=== PATIENT | male | born 1990 | race Caucasian/White ===

== ENCOUNTER 2024-02-01 12:26 | Emergency (ER) | payer BC, OTHER ==
[~2024-02-01] VITALS: Ht 167.6 cm; Wt 73.7 kg
[2024-02-01] MEDS: LIDOCAINE 5% (LIDODERM) PATCH TD ONE (13:21)
[2024-02-01] MEDS: KETOROLAC 60MG 2ML VIAL IM ONE (13:21)
[2024-02-01] MEDS ORDERED: NAPR-837 PO (14:05)
[2024-02-01] MEDS ORDERED: METH-1164 PO (14:05)
[2024-02-01] MEDS ORDERED: LIDO5DIS41 TD (14:05)
[2024-02-01 14:09] VITALS: BP 143/65; TEMP 97.6; O2SAT 99
== END 2024-02-01 14:11 | disposition home or self-care (01) ==
LOC: M ED 12:26
DX: S39.012A Strain of muscle, fascia and tendon of lower back, initial encounter (principal); X50.0XXA Overexertion from strenuous movement or load, initial encounter; Y93.H1 Activity, digging, shoveling and raking; Y92.9 Unspecified place or not applicable; Y99.9 Unspecified external cause status
CPT/HCPCS: 96372; 99283; J1885

== ENCOUNTER 2024-09-15 13:30 | Emergency (ER) | payer BC ==
[~2024-09-15] VITALS: Ht 167.6 cm; Wt 74.6 kg
[~2024-09-15 13:30] MED LIST: LIDO1ADH93 TD; METH-1164 PO; NAPR-837 PO
[2024-09-15 18:16] VITALS: BP 124/80; TEMP 98; O2SAT 97
== END 2024-09-15 18:18 | disposition home or self-care (01) ==
LOC: M ED 13:30
DX: S62.616A Displaced fracture of proximal phalanx of right little finger, initial encounter for closed fracture (principal); Y92.9 Unspecified place or not applicable; Y93.67 Activity, basketball; Y99.9 Unspecified external cause status

== ENCOUNTER → 2024-09-29 | Outpatient (CLI) | payer BC | LOC: M SOG 06:50 | PROVIDERS: ATTEND Physician Assistant | DX: M79.644 Pain in right finger(s) (principal); S62.626A Displaced fracture of middle phalanx of right little finger, initial encounter for closed fracture; X58.XXXA Exposure to other specified factors, initial encounter; Y92.9 Unspecified place or not applicable; Y93.9 Activity, unspecified; Y99.9 Unspecified external cause status ==